=== PATIENT | male | born 1995 | race Caucasian/White ===

== ENCOUNTER 2025-02-21 11:36 | Emergency (ER) | payer MEDICAID ==
[~2025-02-21] VITALS: Ht 180.3 cm; Wt 74.2 kg
[2025-02-21 11:45] VITALS: TEMP 98.6
--- NOTE | 2025-02-21 11:46 | Physician Documentation ---
History of Present Illness ~ Chief Complaint: Groin Pain Stated Complaint: HERNIA Time Seen by MD: 11:49 [facility] 30-year-old male who presents for one-month of right groin pain with a palpable bulge that has most noted when standing. Medication Reconciliation Allergies: Coded Allergies: No Known Allergies (Unverified , 02/21/25) Review of Systems ROS As stated above in the HPI, otherwise all systems are reviewed and negative. Physical Exam Physical Exam General: Alert, no apparent distress. Neck: Full range of motion. Respiratory: Lungs clear, no respiratory distress. Chest: No accessory muscle use. Cardiovascular: Regular rate and rhythm, no murmurs. Gastrointestinal: Soft, nontender, nondistended. Bowels sounds present. Groin: Reducible right inguinal hernia Extremities: Normal range of motion, no deformity. Neurologic: Oriented x4. Psychiatric: Normal mood and affect. Skin: Normal color, warm and dry. No edema, no ecchymosis. Progress Results/Orders Results/Orders Orders - FRANKY BANKS [employer] Us Non Vascular (02/21/25 ) Completed Orders - FRANKY BANKS [employer] Us Non Vascular (02/21/25 ) Vital Signs 02/21/25 02/21/25 02/21/25 11:45 11:54 12:59 Temp 98.6 Pulse 90 63 Resp 18 18 B/P (MAP) 133/73 115/82 Pulse Ox 100 100 Medical Decision Making Additional Comment certified histologic technician reported 2 cm defect, indicating right inguinal hernia. Not found to be incarcerated and remains reducible. Patient is appropriate for outpatient follow up with his primary care, and should request a referral to General surgery. Is instructed and danger signs that would prompt his return. Departure Time of Disposition: 12:19 Disposition: 01 HOME / SELF CARE / HOMELESS Impression: Primary Impression: Inguinal hernia of right side without obstruction or gangrene Discharge Instructions: Hernia Additional Instructions: You are being given a referral to the on-call general surgeon. Most insurance companies require that you get a referral from your primary care as well. You do have a right inguinal hernia measuring about 2 cm. This likely does need surgical intervention. Please return if you are worse per the provided instructions. Or, with any emergent concerns. Referrals: NO PRIMARY CARE PROVIDER (PCP) GHULAM SILVA MD Education Educated: Patient Educated regarding: diagnosis, treatment, prognosis, need for follow up Signature Scribe Signature: x Attestation: The note accurately reflects work and decisions made by me.Franky Oliver NP 02/21/25 13:05 FRANKY BANKS NP Feb 21, 2025 11:46
[2025-02-21 12:59] VITALS: BP 115/82; PULSE 63; RESP 18; O2SAT 100
--- NOTE | 2025-02-21 17:09 | RADIOLOGY REPORT ---
Exam: US US NON VASCULAR Clinical History: hernia Comparison: None Technique: Targeted sonographic evaluation of the soft tissues of the right groin was obtained utilizing grayscale and color Doppler imaging. Findings/Impression: Small hernia is present measuring 2.7 cm.
== END 2025-02-21 13:01 | disposition home or self-care (01) ==
LOC: ER 11:36
DX: K40.90 Unilateral inguinal hernia, without obstruction or gangrene, not specified as recurrent (principal)
CPT/HCPCS: 76705; 99284